=== PATIENT | male | born 1960 | race Caucasian/White ===

== ENCOUNTER 2025-06-20 13:45 | Outpatient (OUT) | payer MEDICARE, SELFPAY ==
--- OUTSIDE RECORDS SUMMARY | 2025-06-20 13:47 | XMS_ITS | Clinical Summary ---
Author Organization [facility] Healthcare Address [address] [place] [address] Care Team Providers Care Kiln Remover Name Role Phone Avila Belcher MD Unavailable [phone] Allergies No known active allergies Medications MedicationSigDispense QuantityRefillsLast FilledStart DateEnd DateStatus Multiple Vitamin (Multi Vitamin) tablet 1 (one) time each day at the same time.3Active LORazepam (Ativan) 0.5 MG tablet Indications:Mixed anxiety and depressive disorderTake 1 tablet (0.5 mg) by mouth 3 (three) times a day as needed for anxiety (The third dose)Take 1 at bedtime, if ineffective may repeat dose at bedtime. Continue with the other part of script 3 times a day as needed. 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 07/02/2023Small airways thhjnmq0807/02/2023ifficulty aeifprt0507/02/2023rimary /11/2024ctinic qstbmiqhh32/11/2024 Resolved Problems ProblemNoted DateDiagnosed DateResolved DateAlcohol oqjjwfwgnl75/11/2024 07/02/2023Elevated AST (SGOT) Encounters DateTypeDepartmentCare DrnyOnyjqfhxegn73/02/2025bstract [facility] [address] [place] [address] Unallocated, Noms MD Rc 05/15/2025bstract [facility] [address] [facility] [address] [place] [id number] Chaya Bustamante NP 03/25/2025Results Follow-Up [facility] [address] [facility] [address] [place] [id number] Marly Shea, SUBSTANCE ABUSE RN Comprehensive metabolic panel, CBC and differential, Lipid panel, Additional followed-up results: 2from Last 3 Months Immunizations ImmunizationAdministration DatesNext DiaRyfg6306/22/2009 Family History Medical HistoryRelationNameCommentsParkinsonismFatherSkin cancerFatherDiabetes MotherMelanomaMotherRelationNameStatusCommentsFatherDeceasedMotherAlive Social History Tobacco UseTypesPacks/DayYears UsedDateSmoking Tobacco: NeverSmokeless Tobacco: Never Tobacco Cessation:Counseling Given: Yes Alcohol UseStandard Drinks/JepfLmpiidwgQcf06 (1 standard drink = 0.6 oz pure alcohol)AUDIT-CAnswerDate RecordedQ1: How often do you have a drink containing alcohol?4 or more times a week07/02/2023Q2: How many drinks containing alcohol do you have on a typical day when you are drinking?1 or Frequency of Binge DrinkingNot on file07/02/2023HQ-2AnswerDate RecordedPatient Health Questionnaire-2 Yagpo624Sex and Gender InformationValueDate RecordedSex Assigned at BirthNot on fileLegal EipHdkv5609/03/2022 7:25 PM EDTGender Identity Not on fileSexual OrientationNot on file Last Filed Vital Signs Vital SignReadingTime TakenCommentsBlood Mdvhatwc530/7409 9:03 AM EDT Aghrq534903/16/2025 9:03 AM EDTTemperature--Respiratory Mlkr939403/16/2025 9:03 AM EDTOxygen Mawhveqdqy62%03/16/2025 9:03 AM EDTInhaled Oxygen Concentration-- Hrytxz20.9 kg (163 lb)03/16/2025 9:03 AM DFRRgjxjw629.8 cm (5' 10 )03/16/2025 9:03 AM EDTBody Mass Index23.39003/16/2025 9:03 AM EDT Plan of Treatment DateTypeDepartmentCare Team (Latest Contact Info)Bevwmikvplj06/09/2026 10:00 AM ESTOffice Visit [facility] [address] [place] [address] [place] [phone] Heather Garcia PA [address] [place] [address] Health MaintenanceDue DateLast DoneCommentsCT Qqhieejokrqf29/21/1959FIT-DNA 1958FIT1958FOBT1958 4483Whzbdsgsexrme80/21/1959Pneumococcal Vaccine: 65+ Years (1 of 2 - PCV)10/10/19775598Oolfykwkmbh13 Colorectal Cancer Rfmefyrrg59/02/2025Influenza Vaccine (#1)2025Medicare Annual Wellness (AWV), 07/02/2023 Procedures Procedure NamePriorityDate/TimeAssociated DiagnosisCommentsCOLONOSCOPYRoutine 08/21/2014 12:00 PM EST from Last 3 Months or Most Recently Relevant to Health Maintenance Results * Colonoscopy (08/21/2014 12:00 PM EST)Anatomical RegionLateralityModality EndoscopySpecimen (Source)Anatomical Location / LateralityCollection Method / VolumeCollection TimeReceived Time08/21/2014 12:00 PM EST Narrative 08/21/2014 12:00 PM EST PERFORMED AT [facility] LOCATION:[id number] Normal Procedure Note CONVERSION, GENERIC - 11/06/2022 PERFORMED AT [facility] LOCATION:[id number] Normal Authorizing ProviderResult TypeResult StatusDaniadam Belcher MDENDOSCOPY PROCEDURE ORDERABLESFinal Result from Last 3 Months or Most Recently Relevant to Health Maintenance Insurance Care Teams Team MemberRelationshipSpecialtyStart DateEnd Date Avila Belcher MD [address] [place] [address] PCP - [employer]06/22/24
--- OUTSIDE RECORDS SUMMARY | 2025-06-20 13:47 | XMS_ITS | Clinical Summary ---
Author Organization [facility] Address [address] [facility], [address] [place] [address] Care Team Providers Care Cleaning Staff Supervisor Name Role Phone Unavailable Primary Care Provider Unavailabl e Allergies No known active allergies Medications No known medications Social History Tobacco UseTypesPacks/DayYears UsedDateSmoking Tobacco: FormerCigarettes Smokeless Tobacco: Never Tobacco Cessation:Counseling Given: Not Answered AUDIT-CAnswerDate RecordedQ1: How often do you have a drink containing alcohol?4 or more times a week07/09/2022Q2: How many drinks containing alcohol do you have on a typical day when you are drinking?10 or more07/09/2022Q3: How often do you have six or more drinks on one occasion?Daily or almost daily07/09/2022Sex and Gender InformationValueDate RecordedSex Assigned at BirthNot on fileLegal Sex Male07/09/2022 12:27 PM ESTGender IdentityNot on fileSexual OrientationNot on file Last Filed Vital Signs Vital SignReadingTime TakenCommentsBlood Vgwbwtyp617/8307/10/2022 1:35 AM EST Znfuk041007/10/2022 1:35 AM FXDOsxwfwlyrbn09.8 ??C (98.2 ??F)07/10/2022 1:30 AM ESTRespiratory Aysn242407/10/2022 1:30 AM ESTOxygen Truahhrvja92%07/10/2022 1:30 AM ESTInhaled Oxygen Concentration--Ipiqjd64.4 kg (153 lb)07/09/2022 12:33 PM HZMHwtuvu122.8 cm (5' 10 )07/09/2022 12:33 PM ESTBody Mass Index21.95007/09/2022 12:33 PM EST Plan of Treatment Health MaintenanceDue DateLast DoneCommentsDTaP/Tdap/Td vaccine (1 - Tdap) 1977Flu vaccine (#1)5COVID-19 Vaccine (1 - 2023- season) 2025Respiratory Syncytial Virus (RSV) or age 60 yrs+ (1 - 1-dose 75+ series)4Polio vaccineAged OutNo longer eligible based on patient's age to complete this topic Insurance
--- OUTSIDE RECORDS SUMMARY | 2025-06-20 13:47 | XMS_ITS ---
Author Organization [facility] Care Team Providers Care Basket Maker Name Role Phone Yesica Becker Unavailable Unavailable Avila Belcher Unavailable Unavailable Regina Esquivel Unavailable Unavailable Heather Garcia Unavailable Unavailable Shabbir HUMAN GEOGRAPHY INSTRUCTOR, Marly Xiao Unavailable Unavailable Bakies, Sara Unavailable Unavailable Ant Pereira Unavailable Unavailable Robby PADILLAC, Chaya Unavailable Unavailable Allergies and adverse reactions No Known Allergies Care Team Name Role Address Phone Organization Dates Regina Esquivel [address], [address], [place] (Office): : [facility] 07/10/2022 - 07/16/2022 Yesica Shuklaionato [address] [place], [address], [place] (Office): [facility] 07/10/2022 - 07/16/2022 Avila Belcher [address], [address], [place] (Office): : : [facility] 07/10/2022 - 07/16/2022 Heather Garcia [address] [place], [address], [facility] (Cell): : [facility] 07/10/2022 - 07/16/2022 Marly Shea HUMAN GEOGRAPHY INSTRUCTOR [address] [place], [address], [place] (Office): : : [facility] 07/10/2022 - 07/16/2022 Sara Tobias [place], [place] (Cell): [facility] 07/10/2022 - 07/16/2022 Ant Pereira [address] [place] [address], [address], [place] (Office): : [facility] 07/10/2022 - 07/16/2022 Chaya Bustamante HUMAN GEOGRAPHY INSTRUCTOR-C [address], [address], [place] (Cell): : : [facility] 07/10/2022 - 07/16/2022 Insurance Providers Coverage Status Coverage Type Relationship to Subscriber Member Identifier Subscriber Identifier Group Identifier Payer Identifier and Other information Code: Code System OID:[id number] Code System Name: Source of Payment Typology (PHDSC) Display: Managed Care (Private) Translation: Code: Code System: OID:[id number] .[id number]. [id number] Code System Name: Insurance Type Code ([id number]) Display Name: Health Maintenance Organization (HMO) Plan Problems Problem # Description Date of onset Resolved Date Code CodeSystem Concern Status 1 ALCOHOL ABUSE WITH WITHDRAWAL, UNSPECIFIED 07/10/[address] active 2 ANXIETY DISORDER, UNSPECIFIED 07/10/[address] active 3 MAJOR DEPRESSIVE DISORDER, RECURRENT SEVERE WITHOUT PSYCHOTIC FEATURES 07/10/[address] active 4 SPONDYLOSIS WITHOUT MYELOPATHY OR RADICULOPATHY, CERVICAL REGION 07/10/[address] active 5 UNSPECIFIED OSTEOARTHRITIS, UNSPECIFIED SITE 07/10/[address] active Reason for Referral No Reasons for Referral Entered Social History Social History Observation Description Start Date End Date Code Code System Current Smoking Status Tobacco smoking consumption unknown 227046895 SNOMED CT Sex Assigned At Male 1960 21439-7 [facility] Gender Identity Sexual Orientation Vital Signs Code Code System Vitals Name Values and Units Timing Information 9279-1 [facility] Respiratory Rate Value=16.0 Units=/m in 07/16/2022 8462-4 [facility] Blood Pressure-Diastolic Value=66 Un its=mmHg 07/16/2022 8480-6 [facility] Blood Pressure-Systolic Jcdns=317 Un its=mmHg 07/16/2022 8310-5 [facility] Body Temperature Value=98.3 Units= F 07/16/2022 8867-4 [facility] Heart rate Value=94.0 Units=/min 89034-7 [facility] O2 % BldC Oximetry Value=99.0 Units= % 07/16/2022 09524-9 [facility] Pain Level Value=0.0 07/16/2022 98878-6 [facility] Weight Frwwh=170.2 Units=Lbs 8302-2 [facility] Height Value=70.0 Units=Inches 07/10/2022
== END 2025-06-20 13:46 | disposition home or self-care (01) ==
LOC: PST 13:45
PROVIDERS: Visit Provider Surgery
DX: Z01.818 Encounter for other preprocedural examination (principal); Z12.11 Encounter for screening for malignant neoplasm of colon